=== PATIENT | male | born 1960 | race African-American/Black ===

== ENCOUNTER 2018-08-29 16:57 | Inpatient (IN) | payer MEDICARE, MEDICAID ==
[~2018-08-29] VITALS: Ht 172.7 cm; Wt 68.1 kg
[2018-08-29] MEDS ORDERED: SODIUM CHLORIDE 0.9% 1000ML BAG (SEPSIS BOLUS) IV ONE (18:45)
[2018-08-29 20:59] LABS: HEMATOCRIT. 41.5 % (42.0-52.0); HEMOGLOBIN. 12.7 g/dL (14.0-18.0); MEAN CORPUSCULAR HEMOGLOBIN 26.4 pg (28.0-32.0); MEAN CORPUSCULAR VOLUME 86.4 fL (80.0-94.0); MEAN PLATELET VOLUME 9.3 fl (7.4-10.4); PLATELET 194 x1000/uL (130-400); RED CELL DISTRIBUTION WIDTH 20.7 % (11.6-14.6)
[2018-08-29 21:05] LABS: CHLORIDE 125 mEq/L (98-107)
[2018-08-29 21:08] LABS: INR 1.4
[2018-08-29] MEDS ORDERED: POTASSIUM CHLORIDE 20MEQ TABLET SR PO ONE ×2 (21:30→22:45)
[2018-08-29] MEDS ORDERED: KCL 10MEQ/50ML PREMIX 50 ML IV ONE (21:30)
[2018-08-29] MEDS ORDERED: VANCOMYCIN 1 G PREMIX 200 ML IV NR (22:00)
[2018-08-29] MEDS ORDERED: PIPERACILLIN/TAZ 3.375G PREMIX 50 ML IV NR (22:00)
[2018-08-29 22:02] LABS: NUCLEATED RED BLOOD CELLS 9 /100 WBC; PLATELET ESTIMATE NORMAL
[2018-08-29] MEDS ORDERED: ONDANSETRON HCL 4MG/2ML INJ IV PRN (22:30)
[2018-08-29] MEDS ORDERED: PIPERACILLIN/TAZ 3.375G PREMIX 50 ML IV SCH (22:30)
[2018-08-29] MEDS ORDERED: CLONIDINE 0.1MG TABLET PO PRN (22:30)
[2018-08-29] MEDS ORDERED: MAGNESIUM/ALUMINUM HYDROXIDE/SIMETHICONE 30ML UDC PO PRN (22:30)
[2018-08-29] MEDS ORDERED: IPRATROPIUM/ALBUTEROL 0.5-3(2.5)MG/3ML NEB INH PRN (22:30)
[2018-08-29] MEDS ORDERED: ACETAMINOPHEN 325MG TABLET PO PRN (22:30)
[2018-08-29 22:36] LABS: CLARITY URINE CLOUDY (CLEAR); COLOR URINE DARK YELLOW (YELLOW); KETONES URINE NEGATIVE (NEGATIVE); LEUKOCYTE ESTERASE URINE NEGATIVE (NEGATIVE); NITRITE URINE NEGATIVE (NEGATIVE); OCCULT BLOOD URINE 1+ (NEGATIVE); PH URINE 5.5 (4.5-8.0); PROTEIN URINE 1+ (NEGATIVE); SPECIFIC GRAVITY URINE 1.013 (1.005-1.030)
[2018-08-29 23:27] LABS: HEPATITIS B SURFACE ANTIGEN NEGATIVE
[2018-08-29 23:57] LABS: HEPATITIS A AB IGM NEGATIVE (NEGATIVE)
[2018-08-30] VITALS (28 sets, daily range): BP systolic 90–132; BP diastolic 49–86
[2018-08-30] MEDS ORDERED: PANTOPRAZOLE SODIUM 40 MG/VIAL IV NR (03:00)
[2018-08-30] MEDS: DEXTROSE 5% WATER 1,000 ML IV SCH ×3 (03:07→21:53)
[2018-08-30] MEDS: VANCOMYCIN 1 G PREMIX 200 ML IV SCH ×3 (04:18→22:37)
[2018-08-30] MEDS ORDERED: POTASSIUM CHLORIDE INJ 40 MEQ in DEXT 5% WATER 250 ML IV NR (05:00)
[2018-08-30] MEDS: PIPERACILLIN/TAZ 3.375G PREMIX 50 ML IV SCH ×3 (06:19→21:49)
[2018-08-30 06:56] LABS: CHLORIDE 126 mEq/L (98-107)
[2018-08-30 07:17] LABS: LDL CHOLESTEROL 62 mg/dL (5-100)
[2018-08-30 07:18] LABS: CREATINE KINASE 36 IU/L (39-308)
[2018-08-30 07:22] LABS: CREATINE KINASE MB FRACTION < 1.0 ng/mL (0.5-3.6)
[2018-08-30 07:23] LABS: HDL CHOLESTEROL 12 mg/dL (40-59)
[2018-08-30] MEDS ORDERED: ENOXAPARIN 40MG/0.4ML SYR SUBCUT SCH (09:00)
[2018-08-30 09:52] LABS: MEAN CORPUSCULAR HEMOGLOBIN 26.4 pg (28.0-32.0); MEAN PLATELET VOLUME 9.1 fl (7.4-10.4); PLATELET 235 x1000/uL (130-400); RED BLOOD CELL COUNT 1.83 mill/uL (4.7-6.1)
[2018-08-30] MEDS: POTASSIUM CHLORIDE INJ 40 MEQ in DEXT 5% WATER 250 ML IV SCH ×3 (10:00→15:07)
[2018-08-30] MEDS: DOCUSATE SODIUM 250MG CAPSULE PO SCH (10:03)
[2018-08-30] MEDS: POTASSIUM CHLORIDE 20MEQ TABLET SR PO SCH ×3 (10:04→17:00)
[2018-08-30] MEDS: DOCUSATE SODIUM 100MG CAPSULE PO PRN (10:04)
[2018-08-30 10:12] LABS: HEMOGLOBIN. 4.8 g/dL (14.0-18.0)
[2018-08-30 10:13] LABS: HEMATOCRIT. 16.1 % (42.0-52.0)
[2018-08-30 10:47] LABS: NUCLEATED RED BLOOD CELLS 2 /100 WBC
[2018-08-30 10:48] LABS: PLATELET ESTIMATE NORMAL
[2018-08-30] MEDS ORDERED: TAMSULOSIN HCL 0.4MG SR CAPSULE PO NR (11:00)
[2018-08-30] MEDS: LORAZEPAM 2MG/ML CPJ IV PRN (11:40)
[2018-08-30 13:33] LABS: CLARITY URINE CLEAR (CLEAR); COLOR URINE YELLOW (YELLOW); KETONES URINE NEGATIVE (NEGATIVE); LEUKOCYTE ESTERASE URINE NEGATIVE (NEGATIVE); NITRITE URINE NEGATIVE (NEGATIVE); OCCULT BLOOD URINE TRACE (NEGATIVE); PH URINE 5.5 (4.5-8.0); PROTEIN URINE NEGATIVE (NEGATIVE); SPECIFIC GRAVITY URINE 1.011 (1.005-1.030)
[2018-08-30] MEDS ORDERED: DOCU-138 PO (17:07)
[2018-08-30] MEDS ORDERED: AMLO10TA80 PO (17:07)
[2018-08-30] MEDS ORDERED: FAMO20TA8 PO (17:07)
[2018-08-30] MEDS ORDERED: [UNRECOGNIZED DRUG - CODE] MT (17:10)
[2018-08-30 19:34] LABS: CREATINE KINASE 86 IU/L (39-308)
[2018-08-30 19:35] LABS: CREATINE KINASE MB FRACTION < 1.0 ng/mL (0.5-3.6)
[2018-08-31] VITALS (14 sets, daily range): BP systolic 106–137; BP diastolic 55–96
[2018-08-31] MEDS: DEXTROSE 5% WATER 1,000 ML IV SCH ×3 (04:44→21:13)
[2018-08-31] MEDS: PIPERACILLIN/TAZ 3.375G PREMIX 50 ML IV SCH ×3 (05:02→21:13)
[2018-08-31 05:58] LABS: HEMATOCRIT. 29.7 % (42.0-52.0); HEMOGLOBIN. 9.8 g/dL (14.0-18.0); MEAN CORPUSCULAR HEMOGLOBIN 28.9 pg (28.0-32.0); MEAN CORPUSCULAR VOLUME 87.1 fL (80.0-94.0); PLATELET 206 x1000/uL (130-400); RED BLOOD CELL COUNT 3.41 mill/uL (4.7-6.1); RED CELL DISTRIBUTION WIDTH 16.6 % (11.6-14.6)
[2018-08-31] MEDS: VANCOMYCIN 1 G PREMIX 200 ML IV SCH (06:08)
[2018-08-31 06:15] LABS: CHLORIDE 129 mEq/L (98-107)
[2018-08-31] MEDS: HYDROCODONE/ACETAMINOPHEN 5/325MG TABLET PO PRN ×2 (07:54→16:41)
[2018-08-31] MEDS ORDERED: PANTOPRAZOLE SODIUM 40 MG/VIAL IV SCH (09:00)
[2018-08-31] MEDS: DOCUSATE SODIUM 100MG CAPSULE PO PRN (09:35)
[2018-08-31] MEDS: DOCUSATE SODIUM 250MG CAPSULE PO SCH (09:35)
[2018-08-31] MEDS: POTASSIUM CHLORIDE 20MEQ TABLET SR PO SCH ×3 (09:36→17:00)
[2018-08-31] MEDS: TAMSULOSIN HCL 0.4MG SR CAPSULE PO SCH (09:36)
[2018-08-31 10:01] LABS: NUCLEATED RED BLOOD CELLS 2 /100 WBC
[2018-08-31 10:02] LABS: PLATELET ESTIMATE NORMAL
[2018-08-31] MEDS ORDERED: FERROUS SULFATE 325MG TABLET PO SCH (12:20)
[2018-08-31] MEDS ORDERED: IOHEXOL-350 100 ML BOTTLE ONE (12:34)
[2018-08-31] MEDS: PANTOPRAZOLE SODIUM 40 MG/VIAL IV SCH (18:04)
[2018-08-31] MEDS: VANCOMYCIN 750 MG PREMIX 150 ML IV SCH (18:07)
[2018-08-31] MEDS: LORAZEPAM 2MG/ML CPJ IV PRN (22:01)
[2018-09-01] VITALS (12 sets, daily range): BP systolic 99–119; BP diastolic 62–77
[2018-09-01] MEDS: VANCOMYCIN 750 MG PREMIX 150 ML IV SCH ×2 (05:02→17:26)
[2018-09-01] MEDS: DEXTROSE 5% WATER 1,000 ML IV SCH ×3 (05:03→20:25)
[2018-09-01] MEDS: PIPERACILLIN/TAZ 3.375G PREMIX 50 ML IV SCH ×3 (06:34→21:26)
[2018-09-01 06:44] LABS: HEMATOCRIT. 28.7 % (42.0-52.0); HEMOGLOBIN. 9.4 g/dL (14.0-18.0); MEAN CORPUSCULAR HEMOGLOBIN 28.6 pg (28.0-32.0); MEAN PLATELET VOLUME 9.2 fl (7.4-10.4); PLATELET 143 x1000/uL (130-400); RED CELL DISTRIBUTION WIDTH 17.5 % (11.6-14.6)
[2018-09-01 08:04] LABS: CHLORIDE 123 mEq/L (98-107)
[2018-09-01] MEDS: DOCUSATE SODIUM 100MG CAPSULE PO PRN (08:07)
[2018-09-01] MEDS: PANTOPRAZOLE SODIUM 40 MG/VIAL IV SCH ×2 (08:07→17:26)
[2018-09-01] MEDS: POTASSIUM CHLORIDE 20MEQ TABLET SR PO SCH ×3 (08:07→17:00)
[2018-09-01] MEDS: DOCUSATE SODIUM 250MG CAPSULE PO SCH (08:08)
[2018-09-01] MEDS: TAMSULOSIN HCL 0.4MG SR CAPSULE PO SCH (08:08)
[2018-09-01] MEDS: HYDROCODONE/ACETAMINOPHEN 5/325MG TABLET PO PRN ×2 (08:15→12:45)
[2018-09-01 15:19] LABS: NUCLEATED RED BLOOD CELLS 1 /100 WBC; PLATELET ESTIMATE NORMAL
[2018-09-01] MEDS: LORAZEPAM 2MG/ML CPJ IV PRN (20:25)
[2018-09-02] VITALS (12 sets, daily range): BP systolic 103–135; BP diastolic 54–81
[2018-09-02] MEDS: DEXTROSE 5% WATER 1,000 ML IV SCH (05:07)
[2018-09-02] MEDS: PIPERACILLIN/TAZ 3.375G PREMIX 50 ML IV SCH (05:33)
[2018-09-02] MEDS: VANCOMYCIN 750 MG PREMIX 150 ML IV SCH (06:25)
[2018-09-02 08:29] LABS: HEMATOCRIT. 30.8 % (42.0-52.0); HEMOGLOBIN. 10.1 g/dL (14.0-18.0); MEAN CORPUSCULAR HEMOGLOBIN 28.7 pg (28.0-32.0); MEAN CORPUSCULAR VOLUME 87.9 fL (80.0-94.0); MEAN PLATELET VOLUME 9.7 fl (7.4-10.4); PLATELET 122 x1000/uL (130-400); RED CELL DISTRIBUTION WIDTH 17.7 % (11.6-14.6)
[2018-09-02 08:47] LABS: CHLORIDE 118 mEq/L (98-107)
[2018-09-02] MEDS: TAMSULOSIN HCL 0.4MG SR CAPSULE PO SCH (09:00)
[2018-09-02] MEDS ORDERED: BISACODYL 10MG SUPP PR PRN (09:00)
[2018-09-02] MEDS ORDERED: VANCOMYCIN 1 G PREMIX 200 ML IV SCH (09:00)
[2018-09-02] MEDS: DOCUSATE SODIUM 250MG CAPSULE PO SCH (09:00)
[2018-09-02] MEDS ORDERED: MORPHINE SULFATE 4 MG/ML CPJ (NOT FOR IM USE) IV PRN (09:00)
[2018-09-02] MEDS ORDERED: BISACODYL 10MG SUPP PR NR (09:00)
[2018-09-02] MEDS: POTASSIUM CHLORIDE 20MEQ TABLET SR PO SCH ×3 (09:00→16:46)
[2018-09-02] MEDS ORDERED: LORAZEPAM 2MG/ML CPJ IV PRN (09:00)
[2018-09-02] MEDS: PANTOPRAZOLE SODIUM 40 MG/VIAL IV SCH ×2 (10:20→16:46)
[2018-09-02] MEDS: POTASSIUM CHLORIDE INJ 40 MEQ in DEXTROSE 5% WATER 1,000 ML IV SCH (10:30)
[2018-09-02 10:37] LABS: PLATELET ESTIMATE SLIGHTLY DECREASED
[2018-09-02] MEDS ORDERED: POTASSIUM CHLORIDE INJ 40 MEQ in DEXT 5% WATER 500 ML IV SCH (11:00)
[2018-09-02 12:33] LABS: CHLORIDE 117 mEq/L (98-107)
[2018-09-02] MEDS: FENTANYL 12MCG/HR PATCH TOP SCH (16:46)
[2018-09-03] VITALS (12 sets, daily range): BP systolic 98–118; BP diastolic 63–90
[2018-09-03] MEDS: POTASSIUM CHLORIDE INJ 40 MEQ in DEXTROSE 5% WATER 1,000 ML IV SCH ×3 (02:48→21:19)
[2018-09-03] MEDS: TAMSULOSIN HCL 0.4MG SR CAPSULE PO SCH (09:00)
[2018-09-03] MEDS: PANTOPRAZOLE SODIUM 40 MG/VIAL IV SCH ×2 (09:00→17:02)
[2018-09-03] MEDS: POTASSIUM CHLORIDE 20MEQ TABLET SR PO SCH ×3 (09:00→17:00)
[2018-09-03] MEDS: DOCUSATE SODIUM 250MG CAPSULE PO SCH (09:00)
[2018-09-03 09:30] LABS: HEMATOCRIT. 26.3 % (42.0-52.0); HEMOGLOBIN. 8.6 g/dL (14.0-18.0); MEAN CORPUSCULAR HEMOGLOBIN 28.6 pg (28.0-32.0); MEAN CORPUSCULAR VOLUME 87.4 fL (80.0-94.0); MEAN PLATELET VOLUME 9.4 fl (7.4-10.4); PLATELET 109 x1000/uL (130-400); RED BLOOD CELL COUNT 3.01 mill/uL (4.7-6.1); RED CELL DISTRIBUTION WIDTH 18.2 % (11.6-14.6)
[2018-09-03 09:43] LABS: CHLORIDE 115 mEq/L (98-107)
[2018-09-03 10:56] LABS: NUCLEATED RED BLOOD CELLS 1 /100 WBC; PLATELET ESTIMATE DECREASED
[2018-09-03 15:21] LABS: HEMATOCRIT 27.7 % (42.0-52.0)
[2018-09-04] VITALS (12 sets, daily range): BP systolic 93–137; BP diastolic 46–75
[2018-09-04 00:12] LABS: HEMATOCRIT 28.1 % (42.0-52.0)
[2018-09-04] MEDS: POTASSIUM CHLORIDE INJ 40 MEQ in DEXTROSE 5% WATER 1,000 ML IV SCH ×2 (06:48→08:50)
[2018-09-04 08:27] LABS: HEMATOCRIT. 26.9 % (42.0-52.0); HEMOGLOBIN. 8.6 g/dL (14.0-18.0); MEAN CORPUSCULAR HEMOGLOBIN 28.3 pg (28.0-32.0); MEAN CORPUSCULAR VOLUME 87.9 fL (80.0-94.0); MEAN PLATELET VOLUME 9.9 fl (7.4-10.4); PLATELET 113 x1000/uL (130-400); RED BLOOD CELL COUNT 3.06 mill/uL (4.7-6.1); RED CELL DISTRIBUTION WIDTH 18.3 % (11.6-14.6)
[2018-09-04 08:42] LABS: CHLORIDE 113 mEq/L (98-107)
[2018-09-04] MEDS: PANTOPRAZOLE SODIUM 40 MG/VIAL IV SCH ×2 (08:50→16:17)
[2018-09-04] MEDS: DOCUSATE SODIUM 250MG CAPSULE PO SCH (09:00)
[2018-09-04] MEDS: TAMSULOSIN HCL 0.4MG SR CAPSULE PO SCH (09:00)
[2018-09-04 10:51] LABS: ATYPICAL LYMPHOCYTES 1
[2018-09-04 10:52] LABS: PLATELET ESTIMATE SLIGHTLY DECREASED
[2018-09-05] VITALS (10 sets, daily range): BP systolic 83–103; BP diastolic 45–66
[2018-09-05] MEDS: POTASSIUM CHLORIDE INJ 40 MEQ in DEXTROSE 5% WATER 1,000 ML IV SCH (01:39)
[2018-09-05] MEDS: PANTOPRAZOLE SODIUM 40 MG/VIAL IV SCH ×2 (08:00→18:36)
[2018-09-05] MEDS ORDERED: BISACODYL 10MG SUPP PR PRN (08:15)
[2018-09-05] MEDS: TAMSULOSIN HCL 0.4MG SR CAPSULE PO SCH (09:00)
[2018-09-05] MEDS ORDERED: PAMIDRONATE DISODIUM 90 MG in SODIUM CHLORIDE 0.9% 500 ML IV NR (10:00)
[2018-09-05] MEDS: FENTANYL 12MCG/HR PATCH TOP SCH (18:33)
[2018-09-06] VITALS (10 sets, daily range): BP systolic 83–107; BP diastolic 47–65
[2018-09-06 07:15] LABS: BASOPHILS % 0.2 % (0.0-2.0); EOSINOPHILS % 0.1 % (0.0-5.0); LYMPHOCYTES % 9.4 % (20.0-50.0); MEAN CORPUSCULAR HEMOGLOBIN 28.4 pg (28.0-32.0); MEAN CORPUSCULAR VOLUME 90.4 fL (80.0-94.0); MEAN PLATELET VOLUME 10.6 fl (7.4-10.4); MONOCYTES % 2.6 % (2.0-8.0); NEUTROPHILS % 87.7 % (40.0-76.0); PLATELET 67 x1000/uL (130-400); RED BLOOD CELL COUNT 2.12 mill/uL (4.7-6.1); RED CELL DISTRIBUTION WIDTH 19.1 % (11.6-14.6)
[2018-09-06 07:49] LABS: HEMATOCRIT. 19.2 % (42.0-52.0)
[2018-09-06] MEDS: TAMSULOSIN HCL 0.4MG SR CAPSULE PO SCH (09:00)
[2018-09-06] MEDS: PANTOPRAZOLE SODIUM 40 MG/VIAL IV SCH ×2 (10:10→21:01)
[2018-09-06 19:50] LABS: HEMATOCRIT 29.7 % (42.0-52.0); HEMOGLOBIN 9.5 g/dL (14.0-18.0)
[2018-09-06] MEDS: POTASSIUM CHLORIDE INJ 40 MEQ in DEXTROSE 5% WATER 1,000 ML IV SCH (21:01)
[2018-09-06 21:39] LABS: INR 2.8
[2018-09-06 21:45] LABS: PROTHROMBIN TIME 28.1 sec (9.1-11.1)
[2018-09-07] VITALS (8 sets, daily range): BP systolic 80–106; BP diastolic 48–58
[2018-09-07 01:17] LABS: HEMATOCRIT 30.2 % (42.0-52.0); HEMOGLOBIN 9.7 g/dL (14.0-18.0)
[2018-09-07] MEDS ORDERED: CEFAZOLIN 1000MG PREMIX 50 ML IV SCH (08:00)
[2018-09-07] MEDS: TAMSULOSIN HCL 0.4MG SR CAPSULE PO SCH (09:00)
[2018-09-07 09:14] LABS: BG BASE EXCESS -5.3 mmol/L (-2.0-2.0); BG CARBOXYHEMOGLOBIN 0.1 % (0.5-1.5); BG DEOXYHEMOGLOBIN 2.3 % (0.0-5.0); BG FRACTION INSPIRED OXYGEN 21; BG HCO3 ACT 18.4 mmol/L (22.0-26.0); BG METHEMOGLOBIN 0.3 % (0.0-1.5); BG OXYGEN SATURATION 97.7 % (92.0-98.5); BG OXYHEMOGLOBIN 97.3 % (94.0-97.0); BG PCO2 29.3 mmHg (35.0-45.0); BG PH 7.415 (7.350-7.450); BG SAMPLE SITE LEFT RADIAL; BG TOTAL HEMOGLOBIN 9.6 g/dL (12.0-18.0); BG VENT MODE ROOM AIR
[2018-09-07] MEDS: DEXTROSE 5% WATER 1,000 ML IV SCH ×2 (10:07→22:05)
[2018-09-07] MEDS: PANTOPRAZOLE SODIUM 40 MG/VIAL IV SCH ×2 (10:07→22:40)
[2018-09-07 10:35] LABS: BASOPHILS % 0.3 % (0.0-2.0); EOSINOPHILS % 0.1 % (0.0-5.0); LYMPHOCYTES % 10.6 % (20.0-50.0); MEAN CORPUSCULAR HEMOGLOBIN 28.7 pg (28.0-32.0); MEAN CORPUSCULAR VOLUME 92.8 fL (80.0-94.0); MONOCYTES % 2.8 % (2.0-8.0); NEUTROPHILS % 86.2 % (40.0-76.0); PLATELET 85 x1000/uL (130-400); RED BLOOD CELL COUNT 3.12 mill/uL (4.7-6.1); RED CELL DISTRIBUTION WIDTH 18.1 % (11.6-14.6)
[2018-09-07 10:38] LABS: INR 2.6; PARTIAL THROMBOPLASTIN TIME 58.1 sec (23.4-31.0); PROTHROMBIN TIME 25.3 sec (9.1-11.1)
[2018-09-07] MEDS ORDERED: ALBUTEROL (0.083%) 2.5MG/3ML NEB HHN SCH (12:15)
[2018-09-07] MEDS: CEFEPIME 1,000 MG in DEXTROSE 5% WATER 50 ML IV SCH (16:51)
[2018-09-07] MEDS ORDERED: VANCOMYCIN 1 G PREMIX 200 ML IV NR (17:00)
[2018-09-07 19:55] LABS: CLARITY URINE CLOUDY (CLEAR); COLOR URINE DARK YELLOW (YELLOW); KETONES URINE NEGATIVE (NEGATIVE); LEUKOCYTE ESTERASE URINE NEGATIVE (NEGATIVE); NITRITE URINE POSITIVE (NEGATIVE); OCCULT BLOOD URINE 1+ (NEGATIVE); PROTEIN URINE 1+ (NEGATIVE); SPECIFIC GRAVITY URINE 1.014 (1.005-1.030)
[2018-09-08] VITALS: BP 103/51
[2018-09-08 04:00] VITALS: BP 92/55
[2018-09-08] MEDS: CEFEPIME 1,000 MG in DEXTROSE 5% WATER 50 ML IV SCH (04:08)
[2018-09-08] MEDS: VANCOMYCIN 1 G PREMIX 200 ML IV SCH ×2 (05:00→23:35)
[2018-09-08] MEDS: DEXTROSE 5% WATER 1,000 ML IV SCH ×2 (05:01→21:02)
[2018-09-08] MEDS ORDERED: IPRATROPIUM/ALBUTEROL 0.5-3(2.5)MG/3ML NEB HHN SCH (08:00)
[2018-09-08] MEDS ORDERED: PAMIDRONATE DISODIUM 60 MG in SODIUM CHLORIDE 0.9% 500 ML IV ONE (08:00)
[2018-09-08 08:17] LABS: BASOPHILS % 0.2 % (0.0-2.0); EOSINOPHILS % 0.3 % (0.0-5.0); HEMATOCRIT. 26.4 % (42.0-52.0); HEMOGLOBIN. 8.2 g/dL (14.0-18.0); LYMPHOCYTES % 13.1 % (20.0-50.0); MEAN CORPUSCULAR HEMOGLOBIN 28.7 pg (28.0-32.0); MEAN CORPUSCULAR VOLUME 91.6 fL (80.0-94.0); MEAN PLATELET VOLUME 10.3 fl (7.4-10.4); MONOCYTES % 2.1 % (2.0-8.0); NEUTROPHILS % 84.3 % (40.0-76.0); PLATELET 54 x1000/uL (130-400); RED BLOOD CELL COUNT 2.88 mill/uL (4.7-6.1); RED CELL DISTRIBUTION WIDTH 18.5 % (11.6-14.6)
[2018-09-08 08:33] LABS: CHLORIDE 113 mEq/L (98-107)
[2018-09-08] MEDS ORDERED: LACTULOSE 300 ML in WATER FOR IRRIGATION,STERILE 700 ML IR NR (09:00)
[2018-09-08] MEDS: TAMSULOSIN HCL 0.4MG SR CAPSULE PO SCH (09:00)
[2018-09-08 11:51] VITALS: BP 91/66
[2018-09-08 16:16] VITALS: BP 91/34
[2018-09-08] MEDS ORDERED: PHYTONADIONE 10MG/ML AMP SUBCUT ONE ×2 (16:45→23:00)
[2018-09-08] MEDS ORDERED: FENTANYL 12MCG/HR PATCH TOP SCH ×2 (18:00→19:45)
[2018-09-08] MEDS ORDERED: MEROPENEM 1,000 MG in SODIUM CHLORIDE 0.9% 100 ML IV SCH (18:00)
[2018-09-08 20:00] VITALS: BP 97/57
[2018-09-09] VITALS: BP 55/29
== END 2018-09-09 01:50 | disposition expired | DRG 871 ==
LOC: ER 16:57 → EDBEDREQTM 22:06 → EDBEDREQ 22:06 → 3WST 22:51 → EDBEDREQ 22:56 → ENRESERV 23:37 → 3WST 08-30 07:37 → 8WST 09-05 10:31
PROVIDERS: ADMIT Internal Medicine Geriatric Medicine; ATTEND Internal Medicine Geriatric Medicine
PROC: 30233N1 Transfusion of Nonautologous Red Blood Cells into Peripheral Vein, Percutaneous Approach (ICD-10-PCS; principal; 2018-08-30)
DX: A41.9 Sepsis, unspecified organism (principal); G93.41 Metabolic encephalopathy; E43 Unspecified severe protein-calorie malnutrition; N17.0 Acute kidney failure with tubular necrosis; C78.7 Secondary malignant neoplasm of liver and intrahepatic bile duct; E87.0 Hyperosmolality and hypernatremia; K92.1 Melena; C25.9 Malignant neoplasm of pancreas, unspecified; D68.9 Coagulation defect, unspecified; Z66 Do not resuscitate; Z51.5 Encounter for palliative care; E87.5 Hyperkalemia; R74.0 Nonspecific elevation of levels of transaminase and lactic acid dehydrogenase [LDH]; R16.0 Hepatomegaly, not elsewhere classified; I10 Essential (primary) hypertension; E87.6 Hypokalemia; D69.6 Thrombocytopenia, unspecified; E86.0 Dehydration; R73.9 Hyperglycemia, unspecified; R33.9 Retention of urine, unspecified; W18.39XA Other fall on same level, initial encounter; D50.9 Iron deficiency anemia, unspecified; E83.52 Hypercalcemia; Z85.07 Personal history of malignant neoplasm of pancreas; Z86.711 Personal history of pulmonary embolism; Z86.73 Personal history of transient ischemic attack (TIA), and cerebral infarction without residual deficits; Z68.22 Body mass index [BMI] 22.0-22.9, adult; Z88.0 Allergy status to penicillin; Y93.89 Activity, other specified; Y92.89 Other specified places as the place of occurrence of the external cause; Y99.8 Other external cause status
CPT/HCPCS: 36415; 36430; 36600; 71045; 71250; 74178; 80048; 80061; 80202; 82140; 82248; 82270; 82330; 82375; 82550; 82553; 82805; 82962; 83036; 83540; 83550; 83605; 83735; 83930; 83935; 84132; 84145; 84295; 84443; 84484; 85014; 85018; 86705; 86709; 86803; 86850; 86900; 86920; 87015; 87045; 87340; 87427; 87449; 92610; 93005; 93306; 93970; 94640; 96365; 97162; 97530; 99291; C1893; C9113; J0690; J0692; J1650; J2060; J2185; J2270; J2405; J2430; J2543; J3370; J3430; J3480; J7030; J7040; J7050; J7060; J7070; J7611; J7620; P9016; Q9967; A4315